=== PATIENT | female | born 1965 | race Two or more races ===

== ENCOUNTER → 2016-07-29 | Outpatient (CLI) | payer OTHER ==
--- NOTE | 2016-07-30 10:25 | MG ---
HISTORY: SCREENING Comparison: Multiple priors dating back to November 01, 2007 FINDINGS: Bilateral CC and MLO projections of the right and left breast were obtained. Scattered fibroglandul ar tissue is seen to be present without significant interval change. No suspicious architectural di stortion, mass or clustered microcalcifications can be observed to suggest malignancy. No skin thic kening or nipple retraction is appreciated. No pathological lymphadenopathy can be identified. Red ign-appearing calcifications are noted within the right and left breast. IMPRESSION: NO RADIOGRAPHIC EVIDENCE OF MALIGNANCY. ACR CATEGORY 2 - benign findings. FOLLOW-UP EXAM 1 YEAR. Diagnostic CAD was utilized and reviewed. * 0 (ZERO) - ASSESSMENT INCOMPLETE; ADDITIONAL IMAGING IS NEEDED. * 1/ (ONE) - NEGATIVE. * 2/II (TWO) - BENIGN FINDINGS. * 3/III (THREE) - PROBABLY BENIGN FINDING; SHORT INTERVAL FOLLOW-UP SUGGESTED. * 4/IV (FOUR) - SUSPICIOUS ABNORMALITY; BIOPSY SHOULD BE CONSIDERED. * 5/V (FIVE) - HIGHLY SUSPICIOUS OF MALIGNANCY; BIOPSY SHOULD BE PERFORMED. A NEGATIVE X-RAY REPORT SHOULD NOT DELAY BIOPSY IF A DOMINANT OR CLINICALLY SUSPICIOUS MASS IS PRESENT; 4 TO 8 PERCENT OF CANCERS ARE NOT IDENTIFIED BY X-RAY. A NEG ATIVE REPORT MAY REINFORCE THE CLINICAL IMPRESSION. ADENOSIS AND DENSE BREASTS MAY OBSCURE AN UNDER LYING NEOPLASM. Reported By:
== END ==
LOC: RAD 08:39
PROVIDERS: ATTEND Nurse Practitioner Family
DX: Z12.31 Encounter for screening mammogram for malignant neoplasm of breast (principal)
CPT/HCPCS: 77067

== ENCOUNTER 2017-06-11 16:38 | Inpatient (IN) | payer SELFPAY ==
[2017-06-11 16:48] VITALS: BMI 25.7
--- NOTE | 2017-06-11 17:24 | DR.GENAD ---
HPI - PCP Primary Care Physician: [facility] - Complaint/Symptoms Chief Complaint Doctors Comments: I agree with history as stated.. Patient had been treated for 2-4 months for cough with various medication. Patient had CT of chest which revealed cavitary lesion consistent with TB. She has not been treated for suspected TB.She will be admitted in isolation and started on PO mecation pending results of definitine lab tests and/or C&S. Chief Complaint:: PT HAD A OUT PATIENT XRAYS DONE TODAY AND WAS TOLD TO COME THE THE ER DEPT. PT WAS TOLD SHE HAD A ABN FINDING OF TB ON HER CT SCAN. PT BEEN HAVING A DRY COUGH SINCE JANUARY THAT HAS BEEN UNTREATED WITH STEROIDS, ANTINBIOTICS AND COUGH MEDICATIONS. PT ALSO STATES SHE HAS BEEN VERY FATIGUED AND HAS BEEN HAVING WEIGHT LOSS APPROX 10-15 LBS SINCE THE BEGINNING OF APRIL. PT IS ALOS RUNNING A LOW GRADE FEVER, BUT DENIES KNOWING IF SHE HAS BEEN RUNNING FEVER. - Source History Provided: Patient - Mode of Arrival Mode of Arrival: Ambulatory - Timing Onset of Chief Complaint: 02/03/17 PMH - PMH Past Medical History: Yes Past Medical History: Arthritis, Dyslipidemia, Hypothyroidism Past Surgical History: Yes Past Surgical History Comment: TUBALIGATION - Family History History of Family Medical Conditions: No - Social History Does any household member use tobacco: No Alcohol Use: None Do you use any recreational Drugs:: No Lives With: Family Lives Where: Home - infectious screening In the last 2 months have you had wt loss of >10#?: NO Have you had fever, night sweats or hemotysis?: No Have you traveled outside the country in the last 6 months?: No Isolation: Standard ROS - Review of Systems Eyes: No Symptoms Reported ENTM: No Symptoms Reported Respiratoy: No Symptoms Reported Cardiovascular: No Symptoms Reported Gastrointestinal/Abdominal: No Symptoms Reported Genitourinary: No Symptoms Reported Neurological: No Symptoms Reported Musculoskeletal: No Symptoms Reported Integumentary: No Symptoms Reported Hematologic/Lymphatic: No Symptoms Reported Endocrine: No Symptoms Reported Psychiatric: No Symptoms Reported All Other Systems: Reviewed and Negative PE - Vital Signs Vitals: Temperature 100.7 F Pulse Rate 86 Respiratory Rate 18 Blood Pressure 178/98 O2 Sat by Pulse Oximetry 97 - General General Appearance: Alert, In No Apparent Distress - Head Head Exam: Normal Inspection, Atraumatic - Eyes Eye exam: Normal Appearance, PERRL - ENT ENT Exam: Normal Exam External Ear Exam: Normal External Inspection TM/Canal Exam: Bilateral Normal Nose Exam: Normal Nose Exam Mouth Exam: Normal Inspection Throat Exam: Normal Inspection - Neck Neck Exam: Normal Inspection - Chest Chest Inspection: Normal Inspection - Respiratory Respiratory Exam: Normal Lung Sounds Bilat Respiratory Exam: Bilateral Clear to Auscultation - Cardiovascular Cardiovascular Exam: Regular Rate - Abdominal Exam Abdominal Exam: Normal Inspection Abdominal Tenderness: negative: RUQ, RLQ, LUQ, LLQ, Epigastrium, Suprapubic, Diffuse, Mild, Moderate, Severe, Other - Extremities Extremities Exam: Normal Inspection, Full ROM - Back Back Exam: Normal Inspection, Full ROM - Neurologic Neurological Exam: Alert, Oriented X3, CN II-XII Intact - Psychiatric Psychiatric Exam: Normal Affect - Skin Skin Exam: Warm, Dry, Intact Course - Reevaluation 1st: Unchanged ROR - Labs Reviewed Result Diagrams: 06/11/17 17:12 06/11/17 17:12 Laboratory: WBC 8.2 X10^3/uL (3.6-10.0) 06/11/17 17:12 RBC 4.03 X10^6/uL (3.5-5.4) 06/11/17 17:12 Hgb 11.3 g/dL (12.0-16.0) L 06/11/17 17:12 Hct 33.1 % (36.0-47.0) L 06/11/17 17:12 MCV 82.2 fL (80.0-100.0) 06/11/17 17:12 MCH 28.0 pg (27.0-34.0) 06/11/17 17:12 MCHC 34.0 g/dL (33.0-35.0) 06/11/17 17:12 RDW 13.5 % (11.6-16.5) 06/11/17 17:12 Plt Count 379 X10^3/uL (150.0-450.0) 06/11/17 17:12 MPV 7.4 fL (7.4-11.0) 06/11/17 17:12 Neut % (Auto) 68.1 % (42.0-75.0) 06/11/17 17:12 Lymph % (Auto) 22.2 % (21.0-51.0) 06/11/17 17:12 [place] % (Auto) 6.2 % (0.0-13.0) 06/11/17 17:12 Eos % (Auto) 2.8 % (0.9-2.9) 06/11/17 17:12 Baso % (Auto) 0.7 % (0.2-1.0) 06/11/17 17:12 Neut # (Auto) 5.6 x10^3/uL (2.2-4.8) H 06/11/17 17:12 Lymph # (Auto) 1.8 X10^3/uL (1.3-2.9) 06/11/17 17:12 [place] # (Auto) 0.5 x10^3/uL (0.3-0.8) 06/11/17 17:12 Eos # (Auto) 0.2 x10^3/uL (0.0-0.2) 06/11/17 17:12 Baso # (Auto) 0.1 X10^3/uL (0.0-0.1) 06/11/17 17:12 Absolute Nucleated RBC 0.0 /100WBC 06/11/17 17:12 INR Target Range - 06/11/17 17:12 INR 1.09 (0.8-1.3) 06/11/17 17:12 APTT 34.3 SECONDS (22.9-36.5) 06/11/17 17:12 PTT Comment - 06/11/17 17:12 Sodium 138 mmol/L (136-145) 06/11/17 17:12 Corrected Sodium TNP 06/11/17 17:12 Potassium 3.7 mmol/L (3.5-5.1) 06/11/17 17:12 Chloride 103 mmol/L (98-107) 06/11/17 17:12 Carbon Dioxide 26.3 mmol/L (21-32) 06/11/17 17:12 BUN 19 mg/dL (7-18) H 06/11/17 17:12 Creatinine 1.99 mg/dL (0.55-1.02) H 06/11/17 17:12 Est GFR (MDRD) Af Amer 34 (>60) L 06/11/17 17:12 Est GFR (MDRD) Non-Af 28 (>60) L 06/11/17 17:12 Glucose 98 mg/dL (65-99) 06/11/17 17:12 Calcium 8.4 mg/dL (8.5-10.1) L 06/11/17 17:12 Corrected Calcium 9.0 mg/dL (8.5-10.1) 06/11/17 17:12 Total Bilirubin 0.20 mg/dL (0.2-1.0) 06/11/17 17:12 AST 16 Units/L (15-37) 06/11/17 17:12 ALT 13 Units/L (12-78) 06/11/17 17:12 Alkaline Phosphatase 109 Units/L (46-116) 06/11/17 17:12 C-Reactive Protein 22.10 mg/L (0-3.0) H 06/11/17 17:12 Total Protein 8.1 g/dL (6.4-8.2) 06/11/17 17:12 Albumin 3.3 g/dL (3.4-5.0) L 06/11/17 17:12 Globulin 4.8 g/dL (2.5-4.5) H 06/11/17 17:12 Albumin/Globulin Ratio 0.7 Ratio (1.1-2.1) L 06/11/17 17:12 - XRAY XRAY Interpreted by: Radiologist - Diagnosis Discharge Problem: Cavitary lung disease - Discharge Plan Condition: Stable - Follow ups/Referrals Follow ups/Referrals: Misc [Primary Care Provider] - 3 days - Instructions
[2017-06-11 17:56] LABS: ALANINE AMINOTRANSFERASE 13 Units/L (12-78); ALBUMIN 3.3 g/dL (3.4-5.0); ALKALINE PHOSPHATASE 109 Units/L (46-116); ASPARTATE AMINO TRANSFERASE 16 Units/L (15-37); BLOOD UREA NITROGEN 19 mg/dL (7-18); CALCIUM 8.4 mg/dL (8.5-10.1); CARBON DIOXIDE 26.3 mmol/L (21-32); CHLORIDE 103 mmol/L (98-107); CREATININE 1.99 mg/dL (0.55-1.02); SODIUM 138 mmol/L (136-145); TOTAL PROTEIN 8.1 g/dL (6.4-8.2); eGFR BLACK RACES 34 (>60); eGFR NON BLACK RACES 28 (>60)
[2017-06-11 18:11] LABS: BASOPHILS # (AUTO) 0.1 X10^3/uL (0.0-0.1); BASOPHILS % (AUTO) 0.7 % (0.2-1.0); EOSINOPHILS # (AUTO) 0.2 x10^3/uL (0.0-0.2); EOSINOPHILS % (AUTO) 2.8 % (0.9-2.9); HEMATOCRIT 33.1 % (36.0-47.0); HEMOGLOBIN 11.3 g/dL (12.0-16.0); LYMPHOCYTES # (AUTO) 1.8 X10^3/uL (1.3-2.9); LYMPHOCYTES % (AUTO) 22.2 % (21.0-51.0); MEAN CORPUSCULAR VOLUME 82.2 fL (80.0-100.0); MEAN PLATELET VOLUME 7.4 fL (7.4-11.0); MONOCYTES # (AUTO) 0.5 x10^3/uL (0.3-0.8); MONOCYTES % (AUTO) 6.2 % (0.0-13.0); NEUTROPHILS # (AUTO) 5.6 x10^3/uL (2.2-4.8); NEUTROPHILS % (AUTO) 68.1 % (42.0-75.0); PLATELET COUNT 379 X10^3/uL (150.0-450.0); RED BLOOD COUNT 4.03 X10^6/uL (3.5-5.4); RED CELL DISTRIBUTION WIDTH 13.5 % (11.6-16.5); WHITE BLOOD COUNT 8.2 X10^3/uL (3.6-10.0)
[2017-06-12 17:44] LABS: BILIRUBIN,URINE NEGATIVE (NEGATIVE); BLOOD/HEMOGLOBIN,URINE 5+ (NEGATIVE); GLUCOSE, URINE NEGATIVE (NEGATIVE); KETONES,URINE NEGATIVE (NEGATIVE); LEUKOCYTE ESTERASE ,URINE 1+ (NEGATIVE); NITRITES,URINE NEGATIVE (NEGATIVE); PROTEIN,URINE 3+ (NEGATIVE); UROBILINOGEN,URINE NORMAL (NORMAL)
[2017-06-12 18:03] LABS: APPEARANCE,URINE SLIGHTLY HAZY (CLEAR); COLOR,URINE YELLOW (YELLOW)
[2017-06-12 18:06] LABS: BACTERIA,URINE NEGATIVE /HPF (NEGATIVE); COARSE GRANULAR CASTS,URINE RARE /HPF (NEGATIVE); RBC,URINE 20-30 /HPF (NONE SEEN); SQUAMOUS EPITHELIAL CELL,UR FEW /HPF (NEGATIVE)
[2017-06-12] MEDS: ETHAMBUTOL HCL PO SCH (20:48)
[2017-06-12] MEDS: RIFADIN CAP 300 MG PO SCH (20:49)
--- NOTE | 2017-06-12 20:51 | DR.H&P ---
H&P - History & Physical for Day of: H&P Date: 06/11/17 - Chief Complaint Chief Complaint: COUGH, ABNORMAL CHEST XRAY - Allergies Allergies/Adverse Reactions: Allergies Allergy/AdvReac Type Severity Reaction Status Date / Time No Known Drug Allergies Allergy Verified 06/11/17 17:06 - History of Present Illness History of Present Illness: IS A 51 YEAR OLD FEMALE WHO PRESENTED TO THE ER WITH COMPLAINTS OF A DRY COUGH AND ABNORMAL CHEST XRAY. PATIENT REPORTS THAT SHE HAS BEEN TREATED FOR THE PAST 2-4 MONTHS FOR A COUGH WITH ANTIBIOTICS, STEROIDS, AND COUGH MEDICATIONS. SHE HAD A CHEST CT YESTERDAY WHICH REVEALED FINDINGS OF A CAVITARY LESION CONSISTENT WITH TUBERCULOSIS. ASSOCIATED SYMPTOMS ARE FATIGUE, WEIGHT LOSS, AND FEVER. ON ARRIVAL, VITALS WERE 98.9-74-18-93%-134/75. LABS WERE OBTAINED. ABNORMAL LAB VALUES INCLUDE THE FOLLOWING: HGB 11.3, HCT 33.1, BUN 19, CREATININE 1.99, CALCIUM 8.4, CRP 22.10, ALBUMIN 3.3, GLOBULIN 4.8. A URINALYSIS REVEALED WBC 3-5, RBC 20-30, LEUKOCYTES 1+, BACTERIA NEGATIVE. BLOOD CULTURES PENDING. NAAT, QUANTIFERON TB GOLD, SPUTUM AFB WERE OBTAINED. PATIENT WAS ADMITTED TO THE HOSPITAL FOR FURTHER EVALUATION AND TREATMENT. SHE WAS STARTED ON ETHAMBUTOL 800MG PH HS AND RIFAMPIN 300MG PO BID. WE WILL FOLLOW UP WITH AM LABS AND CONTINUE TO MONITOR PATIENT. - Past Medical History Past Medical History: Arthritis, Dyslipidemia, Hypothyroidism - Past Surgical History Surgical History: Unknown - Social History Does patient currently use any type of tobacco product: No Have you used tobacco products in the last 12 months: No Type of Tobacco Use: None Does any household member use tobacco: No Alcohol Use: None Drug Use: None - Medications Home Medications: Ciprofloxacin HCl [Cipro] 1 tab PO BID 06/12/17 [History Confirmed 06/12/17] Levothyroxine Sodium 1 tab PO DAILY 06/12/17 [History Confirmed 06/12/17] - Review of Systems Constitutional: No Symptoms Reported, Fever, Malaise, Other (WEIGHT LOSS ) Eyes: No Symptoms Reported ENT: No Symptoms Reported Respiratory: Cough, Shortness of Breath Cardiovascular: No Symptoms Reported Gastrointestinal: No Symptoms Reported Genitourinary: No Symptoms Reported Musculoskeletal: No Symptoms Reported Skin: No Symptoms Reported Neurological: No Symptoms Reported - Physical Exam Vital Signs: Temperature 98.6 F Pulse Rate [Left Brachial] 81 Pulse Rate 86 Respiratory Rate 18 Blood Pressure [Left Arm] 124/79 Blood Pressure 178/98 O2 Sat by Pulse Oximetry 98 Oriented: Normal Eyes: Normal Ear: Normal Nose: Normal Throat: Normal Respiratory: Diminished Throughout Cardiovascular: Normal : Normal Auscultation: Bowel Sounds: Normal Palpation: Normal Tenderness: Normal Skin: Normal Musculoskeletal: Normal Psychiatric: Normal Mood Description: Calm Affect: Normal Speech Pattern: Clear - Assessment/Plan (1) Cavitary lung disease Status: Acute
[2017-06-12] MEDS ORDERED: PATIENT'S HOME MEDICATION PO SCH (21:00)
[2017-06-13 05:44] LABS: BASOPHILS # (AUTO) 0.1 X10^3/uL (0.0-0.1); BASOPHILS % (AUTO) 0.9 % (0.2-1.0); EOSINOPHILS # (AUTO) 0.3 x10^3/uL (0.0-0.2); EOSINOPHILS % (AUTO) 4.3 % (0.9-2.9); HEMATOCRIT 31.4 % (36.0-47.0); HEMOGLOBIN 10.7 g/dL (12.0-16.0); LYMPHOCYTES # (AUTO) 1.6 X10^3/uL (1.3-2.9); LYMPHOCYTES % (AUTO) 22.6 % (21.0-51.0); MEAN CORPUSCULAR HGB CONC 33.9 g/dL (33.0-35.0); MEAN CORPUSCULAR VOLUME 82.6 fL (80.0-100.0); MEAN PLATELET VOLUME 7.5 fL (7.4-11.0); MONOCYTES # (AUTO) 0.5 x10^3/uL (0.3-0.8); NEUTROPHILS # (AUTO) 4.5 x10^3/uL (2.2-4.8); NEUTROPHILS % (AUTO) 65.2 % (42.0-75.0); PLATELET COUNT 321 X10^3/uL (150.0-450.0); RED CELL DISTRIBUTION WIDTH 14.2 % (11.6-16.5); WHITE BLOOD COUNT 6.9 X10^3/uL (3.6-10.0)
[2017-06-13 06:00] LABS: ALANINE AMINOTRANSFERASE 13 Units/L (12-78); ALBUMIN 2.7 g/dL (3.4-5.0); ALKALINE PHOSPHATASE 96 Units/L (46-116); ASPARTATE AMINO TRANSFERASE 16 Units/L (15-37); BLOOD UREA NITROGEN 17 mg/dL (7-18); CALCIUM 8.3 mg/dL (8.5-10.1); CARBON DIOXIDE 25.2 mmol/L (21-32); CHLORIDE 105 mmol/L (98-107); COR CA(FOR HYPOALB) 9.3 mg/dL (8.5-10.1); CREATININE 1.99 mg/dL (0.55-1.02); SODIUM 139 mmol/L (136-145); TOTAL PROTEIN 7.1 g/dL (6.4-8.2); eGFR BLACK RACES 34 (>60); eGFR NON BLACK RACES 28 (>60)
[2017-06-13] MEDS: RIFADIN CAP 300 MG PO SCH ×2 (09:59→20:23)
[2017-06-13] MEDS: SYNTHROID 100 mcg TAB PO SCH (17:06)
--- NOTE | 2017-06-13 20:12 | PCM.PROG ---
Progress Note - Progress Note for Day of Date: 06/13/17 - Subjective Subjective: WAS ADMITTED FOR AN ABNORMAL CT SCAN SUGGESTING TUBERCULOSIS. SHE HAS HAD A PERSISTANT, NON-PRODUCTIVE COUGH. TODAY, SHE IS ALERT AND ORIENTED, LYING IN BED ON MORNING ROUNDS. SHE IS NOTED WITH COMPLAINTS OF SHORTNESS OF BREATH AND COUGH. ON EXAMINATION, HEART IS REGULAR IN RATE AND RHYTHM. BILATERAL LUNGS ARE NOTED WITH DIMINISHED LUNG SOUNDS THROUGHOUT. SHE IS CURRENTLY UTILIZING OXYGEN VIA NASAL CANNULA AT 2L/MIN. ABDOMEN IS ROUND, SOFT, AND NON-TENDER WITH NORMAL BOWEL SOUNDS NOTED IN ALL QUADRANTS. HER VITALS THIS MORNING ARE 98.8-68-18-99%-121/79. LABS WERE OBTAINED. SHE IS HEMODYNAMICALLY STABLE TODAY. TB TEST ARE PENDING. SPUTUM AFB CULTURES HAVE NOT BEEN COLLECTED DUE TO A NON-PRODUCTIVE COUGH. TODAY, WE WILL ORDER FOR A SPUTUM INDUCTION. OTHERWISE, WE WILL CONTINUE WITH CURRENT PLAN OF CARE. PATIENT WILL REMAIN IN THE NEGATIVE PRESSURE ROOM. OTHERWISE, WE WILL FOLLOW UP WITH AM LABS AND CONTINUE TO MONITOR PATIENT. - Past Medical Family Social History Past Med/Fam/Surg Hx: No changes since H&P Allergies: Allergies No Known Drug Allergies Allergy (Verified 06/11/17 17:06) - Review of Systems ROS: No change since H&P - Vital Signs and I&O's Vital Signs: Temperature 98.2 F Pulse Rate [Left Brachial] 73 Pulse Rate 86 Respiratory Rate 18 Blood Pressure [Left Arm] 138/70 Blood Pressure 178/98 O2 Sat by Pulse Oximetry 98 Intake and Output: Intake & Output 06/11/17 06/12/17 06/13/17 06/14/17 11:59 11:59 11:59 11:59 Intake Total 1240 1130 Balance 1240 1130 - Physical Exam Oriented: Normal Eyes: Normal Ear: Normal Nose: Normal Throat: Normal Respiratory: Diminished Cardiovascular: Normal : Normal Auscultation: Bowel Sounds: Normal Palpation: Normal Tenderness: Normal Skin: Normal Musculoskeletal: Normal Psychiatric: Normal Mood Description: Calm Affect: Normal Speech Pattern: Clear, Appropriate - Laboratory and Diagnostics Result Diagrams: 06/13/17 04:25 06/13/17 04:25 Labs: 06/11/17 17:23 Blood Blood Culture - Preliminary 06/11/17 17:17 Blood Blood Culture - Preliminary Laboratory WBC 6.9 X10^3/uL (3.6-10.0) 06/13/17 04:25 RBC 3.80 X10^6/uL (3.5-5.4) 06/13/17 04:25 Hgb 10.7 g/dL (12.0-16.0) L 06/13/17 04:25 Hct 31.4 % (36.0-47.0) L 06/13/17 04:25 MCV 82.6 fL (80.0-100.0) 06/13/17 04:25 MCH 28.0 pg (27.0-34.0) 06/13/17 04:25 MCHC 33.9 g/dL (33.0-35.0) 06/13/17 04:25 RDW 14.2 % (11.6-16.5) 06/13/17 04:25 Plt Count 321 X10^3/uL (150.0-450.0) 06/13/17 04:25 MPV 7.5 fL (7.4-11.0) 06/13/17 04:25 Neut % (Auto) 65.2 % (42.0-75.0) 06/13/17 04:25 Lymph % (Auto) 22.6 % (21.0-51.0) 06/13/17 04:25 [place] % (Auto) 7.0 % (0.0-13.0) 06/13/17 04:25 Eos % (Auto) 4.3 % (0.9-2.9) H 06/13/17 04:25 Baso % (Auto) 0.9 % (0.2-1.0) 06/13/17 04:25 Neut # (Auto) 4.5 x10^3/uL (2.2-4.8) 06/13/17 04:25 Lymph # (Auto) 1.6 X10^3/uL (1.3-2.9) 06/13/17 04:25 [place] # (Auto) 0.5 x10^3/uL (0.3-0.8) 06/13/17 04:25 Eos # (Auto) 0.3 x10^3/uL (0.0-0.2) H 06/13/17 04:25 Baso # (Auto) 0.1 X10^3/uL (0.0-0.1) 06/13/17 04:25 Absolute Nucleated RBC 0.0 /100WBC 06/13/17 04:25 INR Target Range - 06/11/17 17:12 INR 1.09 (0.8-1.3) 06/11/17 17:12 APTT 34.3 SECONDS (22.9-36.5) 06/11/17 17:12 PTT Comment - 06/11/17 17:12 Sodium 139 mmol/L (136-145) 06/13/17 04:25 Corrected Sodium TNP 06/13/17 04:25 Potassium 3.5 mmol/L (3.5-5.1) 06/13/17 04:25 Chloride 105 mmol/L (98-107) 06/13/17 04:25 Carbon Dioxide 25.2 mmol/L (21-32) 06/13/17 04:25 BUN 17 mg/dL (7-18) 06/13/17 04:25 Creatinine 1.99 mg/dL (0.55-1.02) H 06/13/17 04:25 Est GFR (MDRD) Af Amer 34 (>60) L 06/13/17 04:25 Est GFR (MDRD) Non-Af 28 (>60) L 06/13/17 04:25 Glucose 93 mg/dL (65-99) 06/13/17 04:25 Calcium 8.3 mg/dL (8.5-10.1) L 06/13/17 04:25 Corrected Calcium 9.3 mg/dL (8.5-10.1) 06/13/17 04:25 Total Bilirubin 0.70 mg/dL (0.2-1.0) 06/13/17 04:25 AST 16 Units/L (15-37) 06/13/17 04:25 ALT 13 Units/L (12-78) 06/13/17 04:25 Alkaline Phosphatase 96 Units/L (46-116) 06/13/17 04:25 C-Reactive Protein 22.10 mg/L (0-3.0) H 06/11/17 17:12 Total Protein 7.1 g/dL (6.4-8.2) 06/13/17 04:25 Albumin 2.7 g/dL (3.4-5.0) L 06/13/17 04:25 Globulin 4.4 g/dL (2.5-4.5) 06/13/17 04:25 Albumin/Globulin Ratio 0.6 Ratio (1.1-2.1) L 06/13/17 04:25 Specimen Type Clean catch urine 06/12/17 16:49 Urine Color Yellow (YELLOW) 06/12/17 16:49 Urine Appearance Slightly hazy (CLEAR) 06/12/17 16:49 Urine pH 7.0 (5.0 - 8.0) 06/12/17 16:49 Ur Specific [place] 1.010 (1.000-1.030) 06/12/17 16:49 Urine Protein 3+ (NEGATIVE) 06/12/17 16:49 Urine Glucose (UA) Negative (NEGATIVE) 06/12/17 16:49 Urine Ketones Negative (NEGATIVE) 06/12/17 16:49 Urine Occult Blood 5+ (NEGATIVE) 06/12/17 16:49 Urine Nitrite Negative (NEGATIVE) 06/12/17 16:49 Urine Bilirubin Negative (NEGATIVE) 06/12/17 16:49 Urine Urobilinogen Normal (NORMAL) 06/12/17 16:49 Ur Leukocyte Esterase 1+ (NEGATIVE) 06/12/17 16:49 Urine RBC 20-30 /HPF (NONE SEEN) 06/12/17 16:49 Urine WBC 3-5 /HPF (NONE SEEN) 06/12/17 16:49 Ur Squamous Epith Cells Few /HPF (NEGATIVE) 06/12/17 16:49 Urine Bacteria Negative /HPF (NEGATIVE) 06/12/17 16:49 Coarse Granular Casts Rare /HPF (NEGATIVE) 06/12/17 16:49 Ur Culture Indicated? No/not indicated 06/12/17 16:49 - Plan (1) Cavitary lung disease Status: Acute Plan: CONTINUE ETHAMBUTOL, CONTINUE RIFAMPIN, CONTINUE TO MONITOR
[2017-06-13] MEDS: ETHAMBUTOL HCL PO SCH (20:23)
[2017-06-14 07:10] LABS: ALANINE AMINOTRANSFERASE 15 Units/L (12-78); ALBUMIN 2.8 g/dL (3.4-5.0); ALKALINE PHOSPHATASE 111 Units/L (46-116); ASPARTATE AMINO TRANSFERASE 18 Units/L (15-37); BLOOD UREA NITROGEN 16 mg/dL (7-18); CALCIUM 8.6 mg/dL (8.5-10.1); CARBON DIOXIDE 25.8 mmol/L (21-32); CHLORIDE 104 mmol/L (98-107); COR CA(FOR HYPOALB) 9.6 mg/dL (8.5-10.1); CREATININE 1.98 mg/dL (0.55-1.02); SODIUM 139 mmol/L (136-145); TOTAL PROTEIN 7.5 g/dL (6.4-8.2); eGFR BLACK RACES 34 (>60); eGFR NON BLACK RACES 28 (>60)
[2017-06-14 07:13] LABS: BASOPHILS # (AUTO) 0.1 X10^3/uL (0.0-0.1); BASOPHILS % (AUTO) 0.8 % (0.2-1.0); EOSINOPHILS # (AUTO) 0.5 x10^3/uL (0.0-0.2); EOSINOPHILS % (AUTO) 4.5 % (0.9-2.9); HEMATOCRIT 32.1 % (36.0-47.0); LYMPHOCYTES # (AUTO) 1.9 X10^3/uL (1.3-2.9); LYMPHOCYTES % (AUTO) 19.1 % (21.0-51.0); MEAN CORPUSCULAR HEMOGLOBIN 28.2 pg (27.0-34.0); MEAN CORPUSCULAR HGB CONC 34.3 g/dL (33.0-35.0); MEAN CORPUSCULAR VOLUME 82.4 fL (80.0-100.0); MEAN PLATELET VOLUME 7.8 fL (7.4-11.0); MONOCYTES # (AUTO) 0.6 x10^3/uL (0.3-0.8); MONOCYTES % (AUTO) 5.9 % (0.0-13.0); NEUTROPHILS % (AUTO) 69.7 % (42.0-75.0); PLATELET COUNT 341 X10^3/uL (150.0-450.0); RED CELL DISTRIBUTION WIDTH 13.9 % (11.6-16.5); WHITE BLOOD COUNT 10.1 X10^3/uL (3.6-10.0)
[2017-06-14 07:35] LABS: PLATELET MORPHOLOGY COMMENT NORMAL (NORMAL)
[2017-06-14] MEDS: SYNTHROID 100 mcg TAB PO SCH (09:21)
[2017-06-14] MEDS: RIFADIN CAP 300 MG PO SCH (09:21)
[2017-06-14] MEDS ORDERED: TYLENOL 325 MG TAB PO PRN (11:07)
[2017-06-14 12:17] VITALS: BP 108/73
[2017-06-14] MEDS ORDERED: ETHAMBUTOL HCL PO SCH (21:00)
== END 2017-06-14 14:05 | disposition home or self-care (01) | DRG 179 ==
LOC: ER 16:51 → MED/SURG 06-12 08:35 → OBSVTOIN 06-12 08:35
PROVIDERS: ADMIT Internal Medicine; ATTEND Internal Medicine
DX: A15.0 Tuberculosis of lung (principal); E78.2 Mixed hyperlipidemia; E03.8 Other specified hypothyroidism; M19.90 Unspecified osteoarthritis, unspecified site; R63.4 Abnormal weight loss; R06.02 Shortness of breath; R94.4 Abnormal results of kidney function studies; R79.82 Elevated C-reactive protein (CRP)
CPT/HCPCS: 36415; 80053; 81001; 85025; 85610; 85730; 86140; 86480; 87015; 87040; 87116; 87522; 96365; 99281; 99284; A4222